=== PATIENT | male | born 1990 | race Caucasian/White ===

== ENCOUNTER 2022-04-14 13:20 | Emergency (ER) | payer MEDICAID ==
[~2022-04-14] VITALS: Ht 180.3 cm; Wt 63.6 kg
[2022-04-14 14:04] VITALS: BP 156/83
[2022-04-14] MEDS ORDERED: ketorolac trometh inj. 60 MG/2 ML VIAL IM ONE (14:45)
[2022-04-14] MEDS ORDERED: HYDROcodone/acetaminophen 10/325mg tab PO ONE (14:45)
[2022-04-14] MEDS ORDERED: HYDR-3965 PO (14:53)
[2022-04-14] MEDS ORDERED: IBUP-1986 PO (14:53)
== END 2022-04-14 15:21 | disposition home or self-care (01) ==
LOC: ER 13:21
DX: M25.562 Pain in left knee (principal); G89.29 Other chronic pain; Z88.5 Allergy status to narcotic agent
CPT/HCPCS: 29530; 96372; 99284; J1885

== ENCOUNTER 2022-05-24 15:15 | Emergency (ER) | payer MEDICAID ==
[~2022-05-24] VITALS: Ht 180.3 cm; Wt 63.6 kg
[~2022-05-24 15:15] MED LIST: IBUP-1986 PO
[2022-05-24 15:49] VITALS: BP 130/82
[2022-05-24] MEDS ORDERED: ketorolac trometh. 30mg/ml inj. IM ONE (17:40)
[2022-05-24] MEDS ORDERED: OXYC10TA92 PO (19:57)
== END 2022-05-24 20:37 | disposition home or self-care (01) ==
LOC: ER 15:16
DX: M25.562 Pain in left knee (principal); G89.29 Other chronic pain
CPT/HCPCS: 96372; 99283; J1885

== ENCOUNTER 2022-06-18 10:02 | Emergency (ER) | payer MEDICAID ==
[~2022-06-18] VITALS: Ht 177.8 cm; Wt 63.6 kg
[~2022-06-18 10:02] MED LIST changes: +OXYC10TA92 PO
[2022-06-18 10:08] VITALS: BP 138/94
[2022-06-18] MEDS ORDERED: OXYC-481 PO ×2 (11:46→12:25)
[2022-06-18] MEDS ORDERED: ketorolac trometh inj. 60 MG/2 ML VIAL IM ONE (11:50)
== END 2022-06-18 12:11 | disposition home or self-care (01) ==
LOC: ER 10:03
DX: M25.562 Pain in left knee (principal); Z98.890 Other specified postprocedural states; Z88.8 Allergy status to other drugs, medicaments and biological substances
CPT/HCPCS: 96372; 99283; J1885